=== PATIENT | male | born 1945 | race Caucasian/White ===

== ENCOUNTER → 2018-02-23 | Day surgery (SDC) | payer MEDICARE ==
[2018-02-16 16:42] LABS: BASOPHILS % 0.4 % (0.0-1.0); EOSINOPHILS # (AUTO) 0.1 (0.0-0.4); EOSINOPHILS % 1.2 % (0.0-6.0); HEMATOCRIT 37.9 % (38.2-49.6); HEMOGLOBIN 12.3 g/dL (14.0-18.0); LYMPHOCYTES # (AUTO) 1.4 (1.0-3.2); LYMPHOCYTES % 29.4 % (18.0-39.1); MEAN CORPUSCULAR HEMOGLOBIN 28.7 pg (28-32); MEAN CORPUSCULAR HGB CONC 32.5 g/dL (31-35); MEAN CORPUSCULAR VOLUME 88.3 fL (81-99); MONOCYTES # (AUTO) 0.8 (0.2-0.8); MONOCYTES % 15.5 % (4.4-11.3); NEUTROPHILS # (AUTO) 2.6 (2.1-6.9); NEUTROPHILS % 53.3 % (38.7-80.0); PLATELET COUNT 133 x10e3/uL (140-360); RED BLOOD COUNT 4.29 x10e6/uL (4.3-5.7)
--- NOTE | 2018-02-16 17:45 | Diagnostic Imaging Report ---
EXAMINATION: CHEST 2 VIEWS INDICATION: \S\PRE OP \[id number] \S\1650 \S\ANESTH PROT COMPARISON: None FINDINGS: PA and lateral views TUBES and LINES: None. LUNGS: Lungs are well inflated. Subsegmental atelectasis in the left lower lobe. There is no evidence of pneumonia or pulmonary edema. PLEURA: No pleural effusion or pneumothorax. HEART AND MEDIASTINUM: The cardiomediastinal silhouette is unremarkable. BONES AND SOFT TISSUES: No acute osseous lesion. Soft tissues are unremarkable. UPPER ABDOMEN: No free air under the diaphragm. IMPRESSION: No acute thoracic abnormality. Left lower lobe subsegmental atelectasis. Signed by: Dr. Maeve Anderson M.D. on 02/16/2018 5:41 PM
[~2018-02-23] MED LIST: BACITRACIN 50,000 UNIT VIAL ONE; BUPIVACAINE HCL 0.5% INJ 30 ML VIAL INJ ONE; CEFAZOLIN SOD 1 GM VIAL ONE; DESFLURANE 240 ML BTL INH ONE; DEXAMETHASONE SOD PHOS INJ 4 MG/ML VIAL ONE; FENTANYL CITRATE/PF 100MCG/2 ML INJ ONE; LIDOCAINE 1% W/EPINEPHRINE 20 ML VIAL ONE; LIDOCAINE HCL 2% LOCAL INJ 5 ML SDV VIAL INJ ONE; MUPIROCIN 2% OINT 22 GM TUBE ONE; ONDANSETRON HCL INJ 2 MG/ML VIAL ONE; PROPOFOL IV EMULSION 10 MG/ML 20 ML VIAL ONE
[2018-02-23 09:45] VITALS: BP 130/87
--- NOTE | 2018-02-23 10:14 | Operative Report ---
DATE OF PROCEDURE: February 23, 2018 PREOPERATIVE DIAGNOSIS: Basal cell carcinoma, left temporoparietal area. POSTOPERATIVE DIAGNOSIS: Status post Mohs micrographic surgery with 50 cm squared defect. PROCEDURES 1. Excisional preparation of recipient site. 2. Full thickness skin grafting, left temporoparietal area 50 cm squared. ANESTHESIA: General. HISTORY: The patient is a 72-year-old male who underwent Mohs micrographic removal of a large fungating basal cell carcinoma up in the left temporoparietal area. It has left him with a 50 cm squared full thickness defect. The risks, benefits, alternatives of treatment were discussed with the patient and he is prepared to undergo the procedures outlined. DETAILS OF PROCEDURE: Patient was marked preoperatively in the holding area. He was brought to the operating theater and after the induction of adequate general anesthesia, he was prepped and draped in a supine position. A time out was performed. The procedure was begun by making a template of the defect and then transferring that onto the left upper chest. The soft tissues of the left upper chest were then infiltrated with 1% Xylocaine with epinephrine. After waiting an appropriate amount of time for maximum vasoconstrictive effect, a full thickness skin graft was excised through the skin and subcutaneous tissues and then set aside in a saline-soaked gauze. At this point, the skin flaps were undermined widely and the wound made hemostatic using the electrocautery. The donor site wound was closed using 3-0 Monocryl in an interrupted buried fashion followed by 4-0 Monocryl running subcuticular stitch. The full thickness skin graft was then sharply de-fatted down to the deep dermal layer. The wound was made amenable to full thickness skin grafting by excising the skin and subcutaneous tissues so that good healthy margins were achieved. The wound was irrigated with antibiotic containing solution and made hemostatic using the electrocautery. The full thickness skin graft was placed onto the wound and secured using 5-0 chromic sutures in an interrupted circumferential fashion. Care was taken to trim and tailor the graft to the exact dimensions of the defect. At this point, the full thickness skin graft was pie-crusted with a 15-blade. Circumferential 4-0 silk sutures were placed around the edge of the graft. The graft was then dressed with Bactroban ointment, Xeroform gauze and moistened cotton balls. The 4-0 silks were then tied over the cotton balls and Xeroform as a bolster type dressing. Sterile dressings were then applied to both sites. Patient tolerated the procedure well. The estimated blood loss for procedure was between 20 to 25 mL. He was returned to recovery room in satisfactory condition and discharged with a postoperative instruction sheet as well as a followup appointment. Job#: [id number] CHARLES
== END | disposition home or self-care (01) ==
LOC: OR 05:12
PROVIDERS: ATTEND Plastic Surgery
DX: Z48.3 Aftercare following surgery for neoplasm (principal); Z85.828 Personal history of other malignant neoplasm of skin; Z01.810 Encounter for preprocedural cardiovascular examination; Z01.812 Encounter for preprocedural laboratory examination; Z01.818 Encounter for other preprocedural examination
CPT/HCPCS: 15240; 15241 ×2; 36415; 71046; 85025; 93005; J0690; J1100; J2001; J2405